=== PATIENT | male | born 1965 | race Caucasian/White ===

== ENCOUNTER → 2016-11-08 | Outpatient (CLI) | payer OTHER | END | disposition home or self-care (01) | LOC: GMAJ 10:42 | PROVIDERS: ATTEND Family Medicine | DX: Z12.5 Encounter for screening for malignant neoplasm of prostate (principal) ==

== ENCOUNTER → 2017-12-15 | Outpatient (CLI) | payer BC | LOC: GMAJS 12:07 | PROVIDERS: ATTEND Physician Assistant | DX: Z12.5 Encounter for screening for malignant neoplasm of prostate (principal) ==

== ENCOUNTER → 2018-07-20 | Outpatient (CLI) | payer BC | LOC: RESP 15:35 | PROVIDERS: ATTEND Family Medicine | DX: R00.2 Palpitations (principal) ==

== ENCOUNTER → 2018-09-27 | Outpatient (CLI) | payer BC | LOC: SL 08-31 14:43 | PROVIDERS: ATTEND Internal Medicine Interventional Cardiology | DX: G47.10 Hypersomnia, unspecified (principal); I10 Essential (primary) hypertension ==

== ENCOUNTER → 2018-12-09 | Outpatient (CLI) | payer BC | LOC: RESP 10:23 | PROVIDERS: ATTEND Family Medicine | DX: I48.2 Chronic atrial fibrillation (principal) ==

== ENCOUNTER → 2019-09-01 | Outpatient (CLI) | payer BC | DX: Z12.5 Encounter for screening for malignant neoplasm of prostate (principal) ==